=== PATIENT | male | born 1995 | race Two or more races ===

== ENCOUNTER 2017-03-09 17:24 | Emergency (ER) | payer MEDICAID, OTHER ==
[~2017-03-09] VITALS: Ht 182.9 cm; Wt 81.6 kg
[2017-03-09] MEDS ORDERED: NOREPINEPHRINE 8 MG/250ML KIT 250 ML IV ONE (17:43)
[2017-03-09] MEDS ORDERED: LACTATED RINGER'S 2,000 ML IV ONE ×2 (17:45→18:15)
[2017-03-09] MEDS ORDERED: NOREPINEPHRINE 8 MG/250ML KIT 250 ML IV SCH ×2 (18:00)
[2017-03-09] MEDS ORDERED: SODIUM BICARBONATE 8.4 % INJ 50ML VIAL IV ONE (18:00)
[2017-03-09 18:07] LABS: Hematocrit 21.2 % (41.0-53.0); Mean Corpuscular Hgb Conc. 30.9 g/dL (32.0-36.0); Mean Corpuscular Volume 103.6 fL (80.0-100.0); Platelet Count (auto) 132 10^3/uL (140-450); Red Blood Cells 2.04 10^6/uL (4.5-5.90); Red Cell Distribution Width 14.1 % (11.8-14.3); White Blood Cell 2.6 10^3/uL (4.4-10.8)
[2017-03-09 18:13] LABS: Hemoglobin 6.6 g/dL (13.5-17.5)
[2017-03-09 18:14] LABS: Basophils % (manual) 0 (0.0-2.0); Blast Cells 0; Metamyelocytes % 0; Myelocytes % 0; Promyelocytes % 0; Reactive Lymphocytes 0
[2017-03-09] MEDS ORDERED: LACTATED RINGER'S 1,000 ML IV ONE (18:15)
[2017-03-09 18:23] LABS: Alanine Aminotransferase 161 U/L (16-61); Albumin 1.1 g/dL (3.4-5.0); Alkaline Phosphatase 36 U/L (45-117); Anion Gap 21 (5-15); Aspartate Aminotransferase 155 U/L (15-37); Bilirubin, Total < 0.1 mg/dL (0.2-1.0); Blood Urea Nitrogen 5 mg/dL (7-18); Calcium 6.2 mg/dL (8.5-10.1); Carbon Dioxide 10 mmol/L (21-32); Chloride 107 mmol/L (98-107); GFR African American 261 mL/min; GFR Non-African American 215 mL/min; Glucose 135 mg/dL (74-106); Sodium 138 mmol/L (136-145); Total Protein 2.7 g/dL (6.4-8.2)
[2017-03-09 18:37] LABS: Urine Bacteria NONE SEEN /hpf (None Seen); Urine Blood 3+ /uL (Negative); Urine WBC 6 /hpf (0 - 3)
[2017-03-09 18:38] LABS: Alcohol, Urine < 3.0 mg/dL (0-5); Amphetamine Screen, Urine NEGATIVE (NEGATIVE); Barbiturate Scree,Urine NEGATIVE (NEGATIVE); Benzodiazephine Screen, Urine NEGATIVE (NEGATIVE); Cannabinoid Screen, Urine POSITIVE (NEGATIVE); Cocaine Screen, Urine NEGATIVE (NEGATIVE); Opiate Scree,Urine NEGATIVE (NEGATIVE); Phencyclidine Screen, Urine NEGATIVE (NEGATIVE)
[2017-03-09 18:46] LABS: INR 1.81 (0.9-1.15); Prothrombin Time 19.9 sec (9.37-12.3)
[2017-03-09 18:48] VITALS: BP 133/72
[2017-03-09 19:01] LABS: Partial Thromboplastin Time 139.2 sec (22.64-33.71)
[2017-03-09 19:30] LABS: Band Neutrophils % (manual) 2; Eosinophils % (manual) 1 (0-7); Lymphocytes % (manual) 35 (10.0-50.0); Monocytes % (manual) 2 (0-12)
== END 2017-03-09 19:16 | disposition short-term general hospital (02) ==
LOC: ER 17:27 → EDBD 17:27 → ER 19:16
DX: I46.9 Cardiac arrest, cause unspecified (principal); S82.202B Unspecified fracture of shaft of left tibia, initial encounter for open fracture type I or II; S82.402B Unspecified fracture of shaft of left fibula, initial encounter for open fracture type I or II; V29.40XA Motorcycle driver injured in collision with unspecified motor vehicles in traffic accident, initial encounter; Y93.55 Activity, bike riding; Y92.488 Other paved roadways as the place of occurrence of the external cause; Y99.8 Other external cause status
CPT/HCPCS: 29515; 36415; 36430; 36600; 51702; 71045; 80053; 80307; 81001; 81002; 82805; 85007; 85027; 85610; 85730; 86850; 86900; 86901; 86920; 92950; 96360; 99291; P9016